=== PATIENT | female | born 1990 | race Two or more races ===

== ENCOUNTER 2020-03-11 10:52 | Outpatient (CLI) | payer OTHER ==
[2020-03-11] MEDS ORDERED: None at this Time (11:46)
== END 2020-03-11 23:59 | disposition home or self-care (01) ==
LOC: STAR 10:52
PROVIDERS: ATTEND Surgery
DX: Z02.9 Encounter for administrative examinations, unspecified (principal)

== ENCOUNTER 2020-03-16 07:17 | Day surgery (SDC) | payer OTHER ==
[~2020-03-16] VITALS: Ht 157.5 cm; Wt 64.3 kg
[~2020-03-16 07:17] MED LIST: BUPIVACAINE/PF-EPI 0.5% 1:200K ONE; None at this Time
[2020-03-16] MEDS ORDERED: LACTATED RINGERS 1,000 ML IV SCH (07:33)
[2020-03-16 07:37] VITALS: BP 99/66
[2020-03-16] MEDS ORDERED: CHLORHEXIDINE 15 ML UDC ONE (07:41)
[2020-03-16] MEDS ORDERED: CHLORHEXIDINE 15 ML UDC MM ONE (08:00)
[2020-03-16] MEDS ORDERED: MIDAZOLAM 1 MG/ML, 2ML ONE (08:01)
[2020-03-16] MEDS ORDERED: FENTANYL PF 100 MCG/2ML ONE (08:01)
[2020-03-16 08:15] LABS: HCG UR SG 1.028 (1.003-1.030)
[2020-03-16] MEDS ORDERED: LIDOCAINE-MPF 2% ,5ML ONE (08:50)
[2020-03-16] MEDS ORDERED: ONDANSETRON 2MG/ML, 2ML ONE (08:50)
[2020-03-16] MEDS ORDERED: PROPOFOL 10 MG/ML, 20ML ONE (08:50)
[2020-03-16] MEDS ORDERED: DEXAMETHASONE 4 MG/ML, 1ML ONE (08:50)
[2020-03-16] MEDS ORDERED: CEFAZOLIN 1,000 MG ONE (08:50)
[2020-03-16] MEDS ORDERED: KETOROLAC 30 MG/1 ML ONE (08:50)
[2020-03-16] MEDS ORDERED: hydrALAzine 20 MG/ML, 1ML IV PRN (09:00)
[2020-03-16] MEDS ORDERED: HYDROmorphone 1 MG/ML, 1ML INJ IVPush PRN (09:00)
[2020-03-16] MEDS ORDERED: MEPERIDINE/PF 25MG/0.5ML IVPush PRN (09:00)
[2020-03-16] MEDS ORDERED: ACETAMINOPHEN 325 MG TABLET PO PRN (09:00)
[2020-03-16] MEDS ORDERED: LABETALOL 5MG/ML, 20ML IV PRN (09:00)
[2020-03-16] MEDS ORDERED: PROMETHAZINE 25 MG/ML, 1ML IVPush PRN (09:00)
[2020-03-16] MEDS ORDERED: OXYcodone 5 MG/5 ML ORAL.SOL UDC PO PRN (09:00)
[2020-03-16] MEDS ORDERED: FENTANYL PF 100 MCG/2ML IV PRN (09:00)
[2020-03-16] MEDS ORDERED: ALBUTEROL SULFATE 2.5 MG/3 ML NPPB PRN (09:00)
== END 2020-03-16 10:30 | disposition home or self-care (01) ==
LOC: OUT 07:17
PROVIDERS: ATTEND Surgery
DX: N63.15 Unspecified lump in the right breast, overlapping quadrants (principal); Z11.59 Encounter for screening for other viral diseases; D24.1 Benign neoplasm of right breast; J45.909 Unspecified asthma, uncomplicated; Z98.890 Other specified postprocedural states; Z80.41 Family history of malignant neoplasm of ovary; Z82.49 Family history of ischemic heart disease and other diseases of the circulatory system; Z83.3 Family history of diabetes mellitus
CPT/HCPCS: 19120; 36415; 81025; 87635; 88305; J0690; J1100; J1885; J2250; J2405; J2704; J3010; J7120